=== PATIENT | female | born 1970 | race Caucasian/White ===

== ENCOUNTER 2025-05-04 08:01 | Emergency (ER) | payer SELFPAY ==
[~2025-05-04] VITALS: Ht 167.6 cm; Wt 100.9 kg
[2025-05-04] MEDS ORDERED: OVERDOSE RESCUE KIT XX SCH (08:20)
[2025-05-04] MEDS: IBUPROFEN 600 MG TAB PO ONE (08:35)
[2025-05-04 13:30] VITALS: BP 135/75
[2025-05-04 13:45] VITALS: TEMP 96.9; O2SAT 96
== END 2025-05-04 14:09 | disposition home or self-care (01) ==
LOC: M ED 08:01 → EDBD 08:01 → M ED 14:09
DX: T40.1X1A Poisoning by heroin, accidental (unintentional), initial encounter (principal); S20.20XA Contusion of thorax, unspecified, initial encounter; F17.200 Nicotine dependence, unspecified, uncomplicated; K74.60 Unspecified cirrhosis of liver; Z88.8 Allergy status to other drugs, medicaments and biological substances; Y92.9 Unspecified place or not applicable; Y93.89 Activity, other specified; Y99.9 Unspecified external cause status